=== PATIENT | female | born 1970 | race Caucasian/White ===

== ENCOUNTER 2018-11-14 17:05 | Emergency (ER) | payer OTHER ==
[~2018-11-14] VITALS: Ht 157.5 cm; Wt 56.7 kg
[2018-11-14] MEDS ORDERED: CLINDAMYCIN HC300 MG PO (17:11)
== END 2018-11-14 21:53 | disposition home or self-care (01) ==
LOC: ER 17:05
DX: L03.115 Cellulitis of right lower limb (principal); B95.62 Methicillin resistant Staphylococcus aureus infection as the cause of diseases classified elsewhere